=== PATIENT | female | born 1995 | race Caucasian/White ===

== ENCOUNTER 2024-01-24 22:02 | Day surgery (SDC) | payer OTHER ==
[2024-01-24 22:27] VITALS: BMI 34.8
[2024-01-24] MEDS ORDERED: hydrALAZINE 20 MG/ML VIAL SLOW IVP PRN (23:00)
== END 2024-01-24 23:20 | disposition home or self-care (01) ==
LOC: CSHLD/OP 22:02
PROVIDERS: ATTEND Family Medicine
DX: O26.853 Spotting complicating pregnancy, third trimester (principal); O24.419 Gestational diabetes mellitus in pregnancy, unspecified control; O99.891 Other specified diseases and conditions complicating pregnancy; O47.1 False labor at or after 37 completed weeks of gestation; R03.0 Elevated blood-pressure reading, without diagnosis of hypertension; Z79.899 Other long term (current) drug therapy; Z3A.37 37 weeks gestation of pregnancy

== ENCOUNTER 2024-02-04 23:35 | Day surgery (SDC) | payer OTHER ==
[2024-02-05 00:08] VITALS: BMI 34.8
[2024-02-05] MEDS ORDERED: hydrALAZINE 20 MG/ML VIAL SLOW IVP PRN (00:31)
[2024-02-05 00:41] LABS: Bilirubin Neg (Negative); Blood, Urine Negative (Negative); Clarity Clear (Clear); Glucose, Urine (Dipstick) Normal (Negative); Ketone, Urine Negative (Negative); Leukocyte 25 (Negative); Nitrite Negative (Negative); Protein, Urine (Dipstick) Negative (Neg-Trace); Urobilinogen Normal mg/dL (Less than 2)
[2024-02-05 00:50] LABS: Bacteria/HPF None Seen HPF (None Seen); CAUTI Indications for Culture Pregnancy; RBC/HPF None Seen HPF (0-3); Urine Culture Reflex Yes Yes; WBC/HPF None Seen HPF (0-3)
== END 2024-02-05 02:13 | disposition home or self-care (01) ==
LOC: CSHLD/OP 23:35
PROVIDERS: ATTEND Family Medicine
DX: O99.891 Other specified diseases and conditions complicating pregnancy (principal); R10.2 Pelvic and perineal pain; Z3A.38 38 weeks gestation of pregnancy; Z79.899 Other long term (current) drug therapy
CPT/HCPCS: 81001; 87086; 87480; 87510; 87660

== ENCOUNTER 2024-02-09 06:00 | Inpatient (IN) | payer OTHER ==
[2024-02-09 06:47] VITALS: BMI 34.8
[2024-02-09] MEDS ORDERED: Diphenoxylate HCl/Atropine Tablet PO PRN (06:49)
[2024-02-09] MEDS ORDERED: Carboprost 250 MCG/ML AMP IM PRN (06:49)
[2024-02-09] MEDS ORDERED: Acetaminophen 500 MG TAB PO PRN (06:49)
[2024-02-09] MEDS ORDERED: Ondansetron PF 4 MG/2 ML Vial IVP PRN ×3 (06:49→18:27)
[2024-02-09] MEDS ORDERED: Lidocaine 1% (PF) 30 ML VIAL SC PRN (06:49)
[2024-02-09] MEDS ORDERED: Lactated Ringer's 1,000 ML IV SCH (06:49)
[2024-02-09] MEDS ORDERED: Methylergonovine 0.2 MG/ML VIAL IM PRN (06:49)
[2024-02-09] MEDS ORDERED: Misoprostol 200 MCG TAB PR PRN (06:49)
[2024-02-09] MEDS ORDERED: Promethazine HCl 25 MG/ML VIAL IM PRN ×3 (06:49→18:27)
[2024-02-09] MEDS ORDERED: fentaNYL 50 mcg/mL 1 mL Vial SLOW IVP PRN (06:49)
[2024-02-09] MEDS ORDERED: Tranexamic Acid 1,000 MG/10 ML VIAL IVP PRN (06:49)
[2024-02-09] MEDS ORDERED: Oxytocin 30 units/NS 500 ML 500 ML IV SCH ×2 (06:49)
[2024-02-09] MEDS ORDERED: HYDROcodone/Acetaminophen 5/325 mg Tablet PO PRN ×2 (06:49→18:27)
[2024-02-09] MEDS ORDERED: hydrALAZINE 20 MG/ML VIAL SLOW IVP PRN ×2 (06:49→18:27)
[2024-02-09] MEDS ORDERED: Bupivacaine 0.25% HCL 30 ML VIAL ONE (08:00)
[2024-02-09 08:04] LABS: Hematocrit 34.3 % (34.9-44.5); Hemoglobin 11.8 g/dL (12.0-15.5); Mean Corpuscular HGB CONC 34.4 g/dL (32.0-36.0); Mean Corpuscular Hemoglobin 31.3 pg (27.0-33.0); Mean Platelet Volume 12.4 fL (7.4-10.4); Platelet Count 140 10x3/uL (150-450); RBC Distribution Width 13.2 % (11.5-14.5); Red Blood Cell (RBC) Count 3.77 10x6/uL (3.90-5.03); White Blood Cell (WBC) Count 8.6 10x3/uL (3.5-10.5)
[2024-02-09] MEDS: Oxytocin 30 units/NS 500 ML 500 ML IV SCH (08:15)
[2024-02-09 08:34] LABS: HBsAg Index 0.17 S/CO (0-0.99); Hep B Surf Ag - L&D Non-Reactive S/CO (NonReactive)
[2024-02-09 08:36] LABS: Syphilis Antibody Nonreactive (Nonreactive); Syphilis Antibody Index 0.04 S/CO (<1.00 Non-Reactive)
[2024-02-09] MEDS ORDERED: Lactated Ringer's 500 ML IV PRN (11:55)
[2024-02-09] MEDS ORDERED: ePHEDrine Sulfate 50 MG/10 ML VIAL SLOW IVP PRN (11:55)
[2024-02-09] MEDS ORDERED: Naloxone HCl 0.4 mg/ml Vial IVP PRN ×2 (11:55)
[2024-02-09] MEDS ORDERED: diphenhydrAMINE 50 MG/ML VIAL IVP PRN (11:55)
[2024-02-09] MEDS ORDERED: Moisturizing Cream (Eucerin) 113 GM JAR TOP PRN (11:55)
[2024-02-09] MEDS ORDERED: fentaNYL 2 mcg/Ropivacaine 0.2% Epidural 100 ML CADD EPIDURAL SCH (12:00)
[2024-02-09] MEDS ORDERED: Communication Order-Pharmacy FS SCH (12:00)
[2024-02-09] MEDS: Ibuprofen 800 MG TAB PO PRN (17:15)
[2024-02-09] MEDS: Acetaminophen 325 MG TAB PO PRN (17:15)
[2024-02-09] MEDS ORDERED: Bisacodyl 10 MG SUPP PR PRN (18:27)
[2024-02-09] MEDS ORDERED: Milk Of Magnesia 30 ML UDCUP PO PRN (18:27)
[2024-02-09] MEDS ORDERED: diphenhydrAMINE 25 MG CAP PO PRN (18:27)
[2024-02-09] MEDS ORDERED: Lanolin Ointment 7 GM TUBE TOP PRN (18:27)
[2024-02-09] MEDS ORDERED: Boostrix 0.5 ML (Tdap) VIAL (>/=7 yrs of age) IM ONE (18:27)
[2024-02-09] MEDS: Docusate 100 MG CAP PO SCH (20:40)
[2024-02-09] MEDS: fentaNYL/Ropivacaine Epidural 100 ML ONE (21:31)
[2024-02-09] MEDS: Ferrous Sulfate 325 MG TAB PO SCH (21:32)
[2024-02-09] MEDS: Ibuprofen 800 MG TAB PO SCH (23:34)
[2024-02-10 07:47] VITALS: TEMP 98.1
[2024-02-10] MEDS: Prenatal Vitamin 1 TAB PO SCH (08:37)
[2024-02-10 11:12] VITALS: BP 119/65
[2024-02-10] MEDS: Ferrous Sulfate 325 MG TAB PO SCH (12:54)
== END 2024-02-10 16:20 | disposition home or self-care (01) | DRG 807 ==
LOC: CSHLD 06:04 → CSHPP 18:05
PROVIDERS: ADMIT Family Medicine; ATTEND Family Medicine
PROC: 10E0XZZ Delivery of Products of Conception, External Approach (ICD-10-PCS; principal; 2024-02-09)
PROC: 10907ZC Drainage of Amniotic Fluid, Therapeutic from Products of Conception, Via Natural or Artificial Opening (ICD-10-PCS; 2024-02-09)
PROC: 3E033VJ Introduction of Other Hormone into Peripheral Vein, Percutaneous Approach (ICD-10-PCS; 2024-02-09)
DX: O80 Encounter for full-term uncomplicated delivery (principal); Z37.0 Single live birth; Z3A.39 39 weeks gestation of pregnancy
CPT/HCPCS: 85027; 86780; 86850; 86900; 86901; 87340; J0665; J2590